=== PATIENT | male | born 2000 | race Caucasian/White ===

== ENCOUNTER 2019-03-18 20:05 | Emergency (ER) | payer OTHER ==
[~2019-03-18] VITALS: Ht 177.8 cm; Wt 86.2 kg
[~2019-03-18 20:05] MED LIST: IBUPROFEN 400400 M2 PO; MOBIC7.5 MG PO
[2019-03-18 20:11] VITALS: BP 124/60
[2019-03-18] MEDS ORDERED: IBUPROFEN 800800 MG PO (20:49)
== END 2019-03-18 20:54 | disposition home or self-care (01) ==
LOC: M.ERS 20:05
DX: S83.8X2A Sprain of other specified parts of left knee, initial encounter (principal); X58.XXXA Exposure to other specified factors, initial encounter; Y93.67 Activity, basketball; Y92.89 Other specified places as the place of occurrence of the external cause; Y99.8 Other external cause status

== ENCOUNTER 2019-04-10 09:02 | Emergency (ER) | payer OTHER ==
[~2019-04-10] VITALS: Ht 177.8 cm; Wt 86.2 kg
[~2019-04-10 09:02] MED LIST changes: +IBUPROFEN 800800 MG PO
[2019-04-10 10:42] VITALS: BP 131/78
== END 2019-04-10 10:43 | disposition home or self-care (01) ==
LOC: M.ERS 09:02
DX: M79.661 Pain in right lower leg (principal); M79.89 Other specified soft tissue disorders

== ENCOUNTER 2021-03-25 20:02 | Emergency (ER) | payer OTHER, BC ==
[~2021-03-25] VITALS: Ht 177.8 cm; Wt 99.8 kg
[2021-03-25] MEDS ORDERED: FLEXERIL PO (22:09)
[2021-03-25 22:14] VITALS: BP 130/79
--- NOTE | 2021-03-26 11:04 | EKG ---
[place] [address] ELECTROCARDIOGRAM REPORT Name: DESIREE ARMANDO Room: [facility]#: [id number] Admission: 03/25/21 Attend Phys: Discharge: 03/25/21 Date of : 89 Date of Service: 03/25/212038 Report #: [id number] THIS REPORT FOR: //name// [facility] ED Test Date: 2021-03-25 Test Time: 20:39:08 Pat Name: DESIREE ARMANDO Department: Room: Gender: Chief [employer] Guide: CASSY : 2000 Requested By: Donnell Reynoso Order Number: [id number] MD: John Diaz Measurements Intervals [place] Rate: 67 P: 6 DC: 164 QRS: 1 QRSD: 89 T: 26 QT: 383 QTc: 405 Interpretive Statements Sinus rhythm Compared to ECG 08/17/2016 13:19:47 Sinus arrhythmia no longer present Electronically Signed On 03-26-2021 11:04:31 FILE KEEPER by John Diaz [email or web address] <ELECTRONICALLY SIGNED> By: John Diaz MD, [facility] 03/26/21 1104 38 38 John Diaz MD, [facility] /EPI
== END 2021-03-25 22:14 | disposition home or self-care (01) ==
LOC: M.ERS 20:02
DX: R07.89 Other chest pain (principal); V49.88XA Car occupant (driver) (passenger) injured in other specified transport accidents, initial encounter; Y93.89 Activity, other specified; Y92.413 State road as the place of occurrence of the external cause; Y99.9 Unspecified external cause status